=== PATIENT | female | born 1940 | race Caucasian/White ===

== ENCOUNTER 2018-11-18 06:37 | Emergency (ER) | payer OTHER, MEDICARE ==
[~2018-11-18] VITALS: Ht 170.2 cm; Wt 72.6 kg
--- NOTE | 2018-11-18 06:40 | NUR ---
Patient to ER bed 6 to gown for evaluation. Side rails up. Report given to Jimenez BAÑUELOS.
[2018-11-18 06:41] VITALS: BP_SYST 153
--- NOTE | 2018-11-18 06:44 | NUR ---
Pt BIB BLS from [facility] C/O Lt hip pain S/P unwitnessed fall at 0000 this morning. Pt states she was attempting to get back into bed and fell. Pt denies any KO, head, neck or back pain and N/V at this time. Pt has ROM of extremity but unable to straighten leg full. Pt has bruising and swelling to the left leg. Staff gave Tylenol at 0300 with no relief. 12/05 pain, will continue to monitor.
[2018-11-18] MEDS ORDERED: KETOROLAC TROMETHAMINE 60 MG/2 ML VIAL IM ONE (06:45)
--- NOTE | 2018-11-18 06:57 | NUR ---
Report received from SARMAD Gaona for continuation of care.
--- NOTE | 2018-11-18 07:14 | NUR ---
Note kaelone in ED - 11/18/18 at 0818 by HUIEDTAntony Patient presented to [facility] C/O generalized weakness x2. Patient brought in [facility], [place] [id number], ambulatory at home, afebrile, speaking in full sentences, denies pain, denies N/V/D. patient states she had a family event over the weekend and she was admitting to being non complient with diabetic diet.
--- NOTE | 2018-11-18 07:26 | NUR ---
Dietary called for breakfast tray.
--- NOTE | 2018-11-18 07:30 | NUR ---
Homer jara in ED - 11/18/18 at 0820 by SDEDTD JACOBY Batista at bedside examining patient.
--- NOTE | 2018-11-18 08:11 | NUR ---
Patient is complaining of pain in her left hip. States she feels to dizzy to ambulate. Dr. Batista notified.
[2018-11-18] MEDS ORDERED: ACETAMINOPHEN 500 MG TABLET PO ONE (08:15)
--- NOTE | 2018-11-18 08:25 | NUR ---
Breakfast tray provided.
--- NOTE | 2018-11-18 08:30 | NUR ---
Patient's son arrived to pick her up. Patient if finishing her breakfast tray at this time.
[2018-11-18 08:45] VITALS: BP_SYST 128
--- NOTE | 2018-11-18 08:45 | NUR ---
Patient given written and verbal discharge instructions and verbalizes understanding. ER MD discussed with patient the results and treatment provided. Patient in stable condition. ID arm band removed. Rx of naprosyn given. Patient educated on pain management and to follow up with PMD. Pain Scale 8/10, Dr. Batista is aware. Opportunity for questions provided and answered. Medication side effect fact sheet provided.
== END 2018-11-18 08:45 | disposition home or self-care (01) ==
LOC: SED 06:37
DX: S73.102A Unspecified sprain of left hip, initial encounter (principal); Z88.2 Allergy status to sulfonamides; X58.XXXA Exposure to other specified factors, initial encounter; Y93.89 Activity, other specified; Y92.89 Other specified places as the place of occurrence of the external cause; Y99.8 Other external cause status
CPT/HCPCS: 73502; 96372; 99283; J1885

== ENCOUNTER 2018-12-15 06:20 | Emergency (ER) | payer OTHER, MEDICARE ==
[~2018-12-15] VITALS: Ht 167.6 cm; Wt 74.8 kg
--- NOTE | 2018-12-15 06:25 | NUR ---
Patient to ER bed 6 for evaluation. Side rails up.
[2018-12-15 06:26] VITALS: BP_SYST 153
--- NOTE | 2018-12-15 06:30 | NUR ---
Pt 78 YO F from [facility] BIB BLS C/O back pain S/P unwitnessed fall. Pt was walking to the bathroom and tripped. Pt has a small laceration to the back of the head, bleeding is controlled. Pt denies KO, N/V/D or any other symptoms at this time. Will continue to monitor.
--- NOTE | 2018-12-15 06:44 | NUR ---
ER Dr. Beltran at bedside examining patient.
[2018-12-15] MEDS ORDERED: LIDOCAINE 1% 10 MG/ML, 20 ML MDV INJ ONE (07:00)
[2018-12-15] MEDS ORDERED: DIPH-TET-PERTUS Vaccine 0.5 ML VIAL (ADACEL) I.M. ONE (07:00)
--- NOTE | 2018-12-15 07:02 | NUR ---
Patient transported to radiology via gurney, accompanied by rad staff.
--- NOTE | 2018-12-15 07:09 | NUR ---
Report has been given to Mario BAÑUELOS for continuation of care.
[2018-12-15 07:30] LABS: BASOPHILS # (AUTO) 0.1 K/uL (0.0-0.2); BASOPHILS % (AUTO) 0.6 % (0.0-2.0); EOSINOPHILS # (AUTO) 0.5 K/uL (0.0-0.4); EOSINOPHILS % (AUTO) 4.8 % (0.0-4.0); HEMATOCRIT 30.9 % (36-48); HEMOGLOBIN 10.4 g/dL (12.0-16.0); LYMPHOCYTES % (AUTO) 19.9 % (20.5-51.5); MEAN CORPUSCULAR HEMOGLOBIN 33 pg (27-31); MEAN CORPUSCULAR HGB CONC 34 % (32-36); MEAN CORPUSCULAR VOLUME 98 fL (79.0-98.0); MONOCYTES # (AUTO) 0.6 K/uL (0.0-1.0); MONOCYTES % (AUTO) 6.4 % (1.7-9.3); NEUTROPHILS # (AUTO) 6.9 K/uL (1.8-7.7); NEUTROPHILS % (AUTO) 68.3 % (40.0-70.0); PLATELET COUNT (AUTO) 446 K/uL (130-430); RED BLOOD CELL COUNT(AUTO) 3.15 MIL/uL (4.2-6.2); RED CELL DISTRIBUTION WIDTH 17.2 % (9.0-15.0); WHITE BLOOD COUNT (AUTO) 10.1 K/uL (4.8-10.8)
[2018-12-15] MEDS ORDERED: MORPHINE 2 MG/ML INJ. SYRINGE IVP ONE (07:45)
[2018-12-15 07:48] LABS: ANION GAP 7 (5-15); CALCIUM 8.6 mg/dL (8.4-11.0); CHLORIDE 105 mmol/L (98-107); CREATININE 0.71 mg/dL (0.55-1.30); GLUCOSE 113 mg/dL (70-99); POTASSIUM 4.3 mmol/L (3.5-5.1); SODIUM SERUM 138 mmol/L (136-145); UREA NITROGEN, BLOOD 14 mg/dL (8-21)
[2018-12-15 08:01] LABS: ALANINE AMINOTRANSFERASE 23 U/L (12-78); ALBUMIN 3.2 g/dL (3.4-4.8); ASPARTATE AMINOTRANSFERASE 21 U/L (10-37); TOTAL BILIRUBIN 0.6 mg/dL (0.0-1.0)
[2018-12-15] MEDS ORDERED: KETAMINE 30 MG/3 ML SYRINGE IVP ONE (08:15)
[2018-12-15] MEDS ORDERED: IOHEXOL 100 ML IV ONE (08:27)
--- NOTE | 2018-12-15 08:43 | NUR ---
Patient transported to radiology via gurney, accompanied by marine technician.
--- NOTE | 2018-12-15 09:48 | NUR ---
Dr. Kaplan made aware of patient's pain.
[2018-12-15] MEDS ORDERED: MORPHINE 4 MG/ML INJ. SYRINGE IVP ONE (10:00)
[2018-12-15 10:36] LABS: BILIRUBIN,URINE NEGATIVE (NEGATIVE); BLOOD, URINE NEGATIVE (NEGATIVE); CLARITY/URINE CLEAR (CLEAR); COLOR,URINE YELLOW (YELLOW); GLUCOSE,URINE NEGATIVE (NEGATIVE); KETONES,URINE NEGATIVE (NEGATIVE); LEUKOCYTE ESTERASE ,URINE NEGATIVE (NEGATIVE); NITRITE, URINE NEGATIVE (NEGATIVE); PH,URINE 6.5 (5.0-8.0); PROTEIN URINE NEGATIVE (NEGATIVE); UROBILINOGEN,URINE 0.2 (0.2-1.0)
--- NOTE | 2018-12-15 10:57 | NUR ---
Patient given written and verbal discharge instructions and verbalizes understanding. ER MD discussed with patient the results and treatment provided. Patient in stable condition. ID arm band removed. IV catheter removed intact and dressing applied, no active bleeding. Rx of tramadol, ibuprofen given. Patient educated on pain management and to follow up with PMD. Pain Scale 0/10. Opportunity for questions provided and answered. Medication side effect fact sheet provided.
[2018-12-15 10:58] VITALS: BP_SYST 118
== END 2018-12-15 10:58 | disposition home or self-care (01) ==
LOC: SED 06:20
DX: S01.01XA Laceration without foreign body of scalp, initial encounter (principal); S70.02XA Contusion of left hip, initial encounter; S30.0XXA Contusion of lower back and pelvis, initial encounter; S80.12XA Contusion of left lower leg, initial encounter; R94.31 Abnormal electrocardiogram [ECG] [EKG]; Z88.2 Allergy status to sulfonamides; W18.39XA Other fall on same level, initial encounter; Y93.89 Activity, other specified; Y92.89 Other specified places as the place of occurrence of the external cause; Y99.8 Other external cause status
CPT/HCPCS: 12001; 36415; 70450; 72193; 80053; 81003; 85025; 90471; 90715; 93005; 96374; 96375; 96376; 99284; J2001; J2270 ×2; Q9967

== ENCOUNTER 2019-01-28 10:54 | Emergency (ER) | payer OTHER, MEDICARE ==
[~2019-01-28] VITALS: Ht 170.2 cm; Wt 64.9 kg
[2019-01-28 10:55] VITALS: BP_SYST 113
--- NOTE | 2019-01-28 11:00 | NUR ---
Patient brought in by [facility] ambulance w/ c/o of left elbow 5/10 pain which started since last night. Patient stated that elbow pain initially began d/t falling on the floor x 40 days ago. Patient noted to have a left eye abrasion d/t loss of balance and hitting her head on a door a couple of days ago. Patient does not complain of falls or sycope prior to going to ER. Patient complains of dizziness when standing up. Patient remains laying on gurney at this time.
--- NOTE | 2019-01-28 11:01 | NUR ---
Patient to ER bed 03 to gown for evaluation. Side rails up.
--- NOTE | 2019-01-28 11:28 | NUR ---
Dr. Albright @ bedside for examination.
[2019-01-28 12:44] VITALS: BP_SYST 144
--- NOTE | 2019-01-28 12:44 | NUR ---
Patient given written and verbal discharge instructions and verbalizes understanding. ER MD discussed with patient the results and treatment provided. Patient in stable condition. ID arm band removed. Patient educated on pain management and to follow up with PMD. Pain Scale 3/10. Opportunity for questions provided and answered. Medication side effect fact sheet provided.
== END 2019-01-28 12:44 | disposition home or self-care (01) ==
LOC: SED 10:54
DX: S50.02XA Contusion of left elbow, initial encounter (principal); S00.81XA Abrasion of other part of head, initial encounter; Z88.2 Allergy status to sulfonamides; W18.39XA Other fall on same level, initial encounter; Y93.89 Activity, other specified; Y92.89 Other specified places as the place of occurrence of the external cause; Y99.8 Other external cause status
CPT/HCPCS: 99283

== ENCOUNTER 2019-02-07 14:25 | Emergency (ER) | payer OTHER, MEDICARE ==
[~2019-02-07] VITALS: Ht 165.1 cm; Wt 54.4 kg
[2019-02-07] MEDS ORDERED: D5/0.45 NS 1,000 ML IV SCH (14:49)
--- NOTE | 2019-02-07 15:10 | NUR ---
Patient to ER bed 7 to gown for evaluation. Side rails up.
--- NOTE | 2019-02-07 15:10 | NUR ---
Pt arrived to ER after falling out of bed, c/o pain L arm and L leg
--- NOTE | 2019-02-07 15:20 | NUR ---
JACOBY Panchal at bedside examining patient.
--- NOTE | 2019-02-07 15:35 | NUR ---
#20 gauge angiocath placed to R AC. Use of asceptic technique. Opsite placed over site. Blood return noted. Blood for lab drawn from site. Flushed with 10 cc of normal saline. No evidence of infiltration noted. Patient tolerated well.
[2019-02-07 15:42] LABS: BASOPHILS # (AUTO) 0.1 K/uL (0.0-0.2); BASOPHILS % (AUTO) 1.4 % (0.0-2.0); EOSINOPHILS # (AUTO) 0.4 K/uL (0.0-0.4); HEMATOCRIT 40.2 % (36-48); HEMOGLOBIN 13.4 g/dL (12.0-16.0); LYMPHOCYTES # (AUTO) 1.3 K/uL (1.0-5.5); LYMPHOCYTES % (AUTO) 26.6 % (20.5-51.5); MEAN CORPUSCULAR HEMOGLOBIN 32 pg (27-31); MEAN CORPUSCULAR HGB CONC 33 % (32-36); MEAN CORPUSCULAR VOLUME 96 fL (79.0-98.0); MONOCYTES # (AUTO) 0.6 K/uL (0.0-1.0); MONOCYTES % (AUTO) 13.3 % (1.7-9.3); NEUTROPHILS # (AUTO) 2.5 K/uL (1.8-7.7); NEUTROPHILS % (AUTO) 50.7 % (40.0-70.0); PLATELET COUNT (AUTO) 262 K/uL (130-430); RED BLOOD CELL COUNT(AUTO) 4.19 MIL/uL (4.2-6.2); RED CELL DISTRIBUTION WIDTH 15.4 % (9.0-15.0); WHITE BLOOD COUNT (AUTO) 4.8 K/uL (4.8-10.8)
--- NOTE | 2019-02-07 15:50 | NUR ---
Straight cath used for urine sample. Sent to lab
[2019-02-07] MEDS ORDERED: MORPHINE 2 MG/ML INJ. SYRINGE IVP ONE ×2 (16:15→17:15)
--- NOTE | 2019-02-07 16:20 | NUR ---
Morphine 2mg administered for pain
[2019-02-07 16:29] LABS: ANION GAP 9 (5-15); CALCIUM 8.2 mg/dL (8.4-11.0); CHLORIDE 103 mmol/L (98-107); CREATININE 0.69 mg/dL (0.55-1.30); GLUCOSE 167 mg/dL (70-99); POTASSIUM 4.2 mmol/L (3.5-5.1); SODIUM SERUM 135 mmol/L (136-145); UREA NITROGEN, BLOOD 17 mg/dL (8-21)
[2019-02-07 16:32] LABS: BILIRUBIN,URINE NEGATIVE (NEGATIVE); BLOOD, URINE NEGATIVE (NEGATIVE); CLARITY/URINE CLEAR (CLEAR); COLOR,URINE YELLOW (YELLOW); GLUCOSE,URINE NEGATIVE (NEGATIVE); KETONES,URINE NEGATIVE (NEGATIVE); LEUKOCYTE ESTERASE ,URINE NEGATIVE (NEGATIVE); NITRITE, URINE NEGATIVE (NEGATIVE); PH,URINE 6.5 (5.0-8.0); PROTEIN URINE NEGATIVE (NEGATIVE); UROBILINOGEN,URINE 0.2 (0.2-1.0)
[2019-02-07 16:44] LABS: ALANINE AMINOTRANSFERASE 13 U/L (12-78); ALBUMIN 2.9 g/dL (3.4-4.8); ASPARTATE AMINOTRANSFERASE 19 U/L (10-37); THYROID STIMULATING HORMONE 1.48 uIu/mL (0.36-3.74); TOTAL BILIRUBIN 0.3 mg/dL (0.0-1.0)
--- NOTE | 2019-02-07 17:59 | NUR ---
morphine 2mg administered for pain
--- NOTE | 2019-02-07 18:30 | NUR ---
Patient given written and verbal discharge instructions and verbalizes understanding. ER MD discussed with patient the results and treatment provided. Patient in stable condition. ID arm band removed. IV catheter removed intact and dressing applied, no active bleeding. Rx of Tylenol w/Codeine given. Patient educated on pain management and to follow up with PMD. Pain Scale 4 tolerable. Opportunity for questions provided and answered. Medication side effect fact sheet provided.
[2019-02-07 18:35] VITALS: BP_SYST 147
== END 2019-02-07 18:30 | disposition home or self-care (01) ==
LOC: SED 14:25
DX: S22.32XA Fracture of one rib, left side, initial encounter for closed fracture (principal); L76.32 Postprocedural hematoma of skin and subcutaneous tissue following other procedure; Z88.2 Allergy status to sulfonamides; W06.XXXA Fall from bed, initial encounter; Y93.89 Activity, other specified; Y92.89 Other specified places as the place of occurrence of the external cause; Y99.8 Other external cause status
CPT/HCPCS: 36415; 70450; 71045; 71100; 80053; 81003; 83605; 84443; 84484; 85025; 87040; 87086; 93005; 96374; 96376; 99284; J2270; J7030

== ENCOUNTER 2019-03-06 20:15 | Emergency (ER) | payer OTHER, MEDICARE ==
[~2019-03-06] VITALS: Ht 170.2 cm; Wt 64.0 kg
[2019-03-06 20:16] VITALS: BP_SYST 118
--- NOTE | 2019-03-06 21:15 | NUR ---
Patient to ER bed 5 to gown for evaluation. Side rails up.
--- NOTE | 2019-03-06 21:30 | NUR ---
Pt brought in by [facility]. Pt awake, alert, oriented x4. Pt states that she had mechanical slip and fall at [facility]. Pt states that she was a little bit short of breath going to the bathroom and tripped over something trying to get back to her chair. Pt denies KO. Pt states she was able to get up and walk afterwards. Pt states that she has no pain at rest, but 10/10 pain when she rolls to that side. Pt denies chest pain, dizziness, nausea, vomiting, diarrhea, any other medical complaint at this time. Pt resting in ED bed comfortably. No acute distress noted. VSS. Son-in-law bedside.
--- NOTE | 2019-03-06 21:56 | NUR ---
ER at bedside examining patient.
[2019-03-06] MEDS ORDERED: ASPIRIN 81 MG TAB.CHEW PO ONE (23:00)
--- NOTE | 2019-03-06 23:00 | NUR ---
Pt resting in ED bed. Pt shows no acute s/s of distress at this time. Son-in-Law bedside
[2019-03-06 23:50] LABS: ANION GAP 6 (5-15); CHLORIDE 100 mmol/L (98-107); CREATININE 0.83 mg/dL (0.55-1.30); GLUCOSE 120 mg/dL (70-99); POTASSIUM 3.8 mmol/L (3.5-5.1); SODIUM SERUM 132 mmol/L (136-145); UREA NITROGEN, BLOOD 21 mg/dL (8-21)
[2019-03-06 23:54] LABS: ALANINE AMINOTRANSFERASE 28 U/L (12-78); ALBUMIN 3.1 g/dL (3.4-4.8); ASPARTATE AMINOTRANSFERASE 17 U/L (10-37); TOTAL BILIRUBIN 0.3 mg/dL (0.0-1.0)
[2019-03-06 23:55] LABS: BASOPHILS # (AUTO) 0.1 K/uL (0.0-0.2); BASOPHILS % (AUTO) 0.5 % (0.0-2.0); EOSINOPHILS # (AUTO) 0.3 K/uL (0.0-0.4); EOSINOPHILS % (AUTO) 2.1 % (0.0-4.0); HEMATOCRIT 32.5 % (36-48); HEMOGLOBIN 10.7 g/dL (12.0-16.0); LYMPHOCYTES % (AUTO) 22.4 % (20.5-51.5); MEAN CORPUSCULAR HEMOGLOBIN 32 pg (27-31); MEAN CORPUSCULAR HGB CONC 33 % (32-36); MEAN CORPUSCULAR VOLUME 97 fL (79.0-98.0); MONOCYTES # (AUTO) 1.1 K/uL (0.0-1.0); MONOCYTES % (AUTO) 8.2 % (1.7-9.3); NEUTROPHILS # (AUTO) 9.1 K/uL (1.8-7.7); NEUTROPHILS % (AUTO) 66.8 % (40.0-70.0); PLATELET COUNT (AUTO) 298 K/uL (130-430); RED BLOOD CELL COUNT(AUTO) 3.36 MIL/uL (4.2-6.2); RED CELL DISTRIBUTION WIDTH 15.1 % (9.0-15.0); WHITE BLOOD COUNT (AUTO) 13.6 K/uL (4.8-10.8)
--- NOTE | 2019-03-07 | NUR ---
Bedside explaining test results, Xray results.
[2019-03-07] MEDS ORDERED: HYDROcodone/ACETAMIN 5-325 MG TAB (NORCO/ VICODIN) PO ONE (00:30)
[2019-03-07 01:25] VITALS: BP_SYST 127
--- NOTE | 2019-03-07 01:25 | NUR ---
Patient given written and verbal discharge instructions and verbalizes understanding. ER MD discussed with patient the results and treatment provided. Patient in stable condition. ID arm band removed.No IV Catheter Rx of Motrin and [place] 5/325 given. Patient educated on pain management and to follow up with PMD. Pain Scale 0/10. Pt assisted to ambulate to wheelchair and assisted into Vehicle. Opportunity for questions provided and answered. Medication side effect fact sheet provided.
== END 2019-03-07 01:25 | disposition home or self-care (01) ==
LOC: SED 20:15
DX: S70.02XA Contusion of left hip, initial encounter (principal); Z88.2 Allergy status to sulfonamides; W18.39XA Other fall on same level, initial encounter; Y93.89 Activity, other specified; Y92.89 Other specified places as the place of occurrence of the external cause; Y99.8 Other external cause status
CPT/HCPCS: 36415; 71045; 72170-TC; 73502; 80053; 82550-TC; 83880; 84484; 85025; 99284

== ENCOUNTER 2019-04-11 02:40 | Emergency (ER) | payer OTHER, MEDICARE ==
[~2019-04-11] VITALS: Ht 170.2 cm; Wt 63.5 kg
[2019-04-11 02:45] VITALS: BP_SYST 160
[2019-04-11] MEDS ORDERED: KETOROLAC TROMETHAMINE 30 MG VIAL IM ONE (04:00)
[2019-04-11 04:08] LABS: BASOPHILS # (AUTO) 0.1 K/uL (0.0-0.2); EOSINOPHILS # (AUTO) 0.1 K/uL (0.0-0.4); EOSINOPHILS % (AUTO) 1.4 % (0.0-4.0); HEMOGLOBIN 13.7 g/dL (12.0-16.0); LYMPHOCYTES # (AUTO) 1.8 K/uL (1.0-5.5); MEAN CORPUSCULAR HEMOGLOBIN 32 pg (27-31); MEAN CORPUSCULAR HGB CONC 33 % (32-36); MEAN CORPUSCULAR VOLUME 97 fL (79.0-98.0); MONOCYTES # (AUTO) 0.8 K/uL (0.0-1.0); MONOCYTES % (AUTO) 8.1 % (1.7-9.3); NEUTROPHILS # (AUTO) 7.2 K/uL (1.8-7.7); NEUTROPHILS % (AUTO) 71.5 % (40.0-70.0); PLATELET COUNT (AUTO) 286 K/uL (130-430); RED BLOOD CELL COUNT(AUTO) 4.32 MIL/uL (4.2-6.2); RED CELL DISTRIBUTION WIDTH 15.2 % (9.0-15.0); WHITE BLOOD COUNT (AUTO) 10.1 K/uL (4.8-10.8)
[2019-04-11] MEDS ORDERED: DIPH-TET-PERTUS Vaccine 0.5 ML VIAL (ADACEL) I.M. ONE (04:15)
[2019-04-11 04:20] LABS: ANION GAP 9 (5-15); CALCIUM 8.8 mg/dL (8.4-11.0); CHLORIDE 102 mmol/L (98-107); GLUCOSE 152 mg/dL (70-99); POTASSIUM 4.1 mmol/L (3.5-5.1); SODIUM SERUM 137 mmol/L (136-145); UREA NITROGEN, BLOOD 19 mg/dL (8-21)
[2019-04-11 04:26] LABS: ALANINE AMINOTRANSFERASE 24 U/L (12-78); ALBUMIN 3.3 g/dL (3.4-4.8); ASPARTATE AMINOTRANSFERASE 21 U/L (10-37); TOTAL BILIRUBIN 0.3 mg/dL (0.0-1.0)
[2019-04-11] MEDS ORDERED: LIDOCAINE/EPI 1% 1:100000 20 ML VIAL INJ ONE (04:30)
[2019-04-11] MEDS ORDERED: AMOXICILLIN/CLAVULANATE POTASSIUM 875 MG TABLET PO ONE (06:00)
[2019-04-11 06:40] VITALS: BP_SYST 146
== END 2019-04-11 06:40 | disposition home or self-care (01) ==
LOC: SED 02:40
DX: S01.01XA Laceration without foreign body of scalp, initial encounter (principal); E11.9 Type 2 diabetes mellitus without complications; G20 Parkinson's disease; Z87.440 Personal history of urinary (tract) infections; Z86.79 Personal history of other diseases of the circulatory system; Z86.73 Personal history of transient ischemic attack (TIA), and cerebral infarction without residual deficits; Z88.2 Allergy status to sulfonamides; W22.8XXA Striking against or struck by other objects, initial encounter; Y93.89 Activity, other specified; Y92.89 Other specified places as the place of occurrence of the external cause; Y99.8 Other external cause status
CPT/HCPCS: 12013; 36415; 70450; 72125; 80053; 85025; 90471; 90715; 96372; 99285; J1885

== ENCOUNTER 2019-04-29 13:15 | Emergency (ER) | payer OTHER, MEDICARE ==
[~2019-04-29] VITALS: Ht 170.2 cm; Wt 61.2 kg
[2019-04-29 14:00] VITALS: BP_SYST 140
--- NOTE | 2019-04-29 14:00 | NUR ---
Patient to ER bed 07 to gown for evaluation. Side rails up.
--- NOTE | 2019-04-29 14:05 | NUR ---
Patient arrived in the ED c/o Left arm pain post mechanical fall that started today. Patient denied any chest pain or shortness of breath. Denied any fevers, chills, nausea, or vomiting. Patient is alert and oriented x4, respirations even and unlabored, speaking in full sentences, ambulating with assistance. VSS, pain level 8/10. Son at bedside. Informed of approximate wait time. Instructed to notify ED staff for any changes in condition or worsening of symptoms. Patient verbalized understanding.
--- NOTE | 2019-04-29 14:10 | NUR ---
ER Dr. Weller at bedside examining patient.
--- NOTE | 2019-04-29 14:14 | NUR ---
X-ray tech at bedside as ordered by Dr. Weller. Patient tolerated the procedure well.
[2019-04-29] MEDS ORDERED: IBUPROFEN 600 MG TABLET PO ONE (14:15)
[2019-04-29] MEDS ORDERED: NEOMY SULF/BACITRAC ZN/POLY 28 GM OINT..GM. TP ONE (15:45)
[2019-04-29 19:40] VITALS: BP_SYST 116
== END 2019-04-29 19:40 | disposition home or self-care (01) ==
LOC: SED 13:15
DX: S00.03XA Contusion of scalp, initial encounter (principal); E11.9 Type 2 diabetes mellitus without complications; G20 Parkinson's disease; Z86.73 Personal history of transient ischemic attack (TIA), and cerebral infarction without residual deficits; Z86.79 Personal history of other diseases of the circulatory system; Z88.2 Allergy status to sulfonamides; W18.09XA Striking against other object with subsequent fall, initial encounter; Y93.89 Activity, other specified; Y92.89 Other specified places as the place of occurrence of the external cause; Y99.8 Other external cause status
CPT/HCPCS: 70450-TC; 99284

== ENCOUNTER 2019-12-17 01:09 | Emergency (ER) | payer OTHER, MEDICARE ==
[~2019-12-17] VITALS: Ht 170.2 cm; Wt 59.0 kg
[2019-12-17 01:16] VITALS: BP_SYST 160
--- NOTE | 2019-12-17 02:21 | NUR ---
Patient to ER bed 7 to gown for evaluation. Side rails up.
--- NOTE | 2019-12-17 02:28 | NUR ---
Patient BIB by BLS form [facility]. C/O fell x toay. Per BLS/EMT reported, patient fell after tried to turn light on, found right side on the floor, Hx [place], Sx Bypass. A/O,X3, brasion chin, right lower leg, head pain, pain rate 5/10, place patient on lunchroom monitor and pulse ox.
--- NOTE | 2019-12-17 02:35 | NUR ---
ER at bedside examining patient.
[2019-12-17] MEDS ORDERED: DIPH-TET-PERTUS Vaccine 0.5 ML VIAL (ADACEL) I.M. ONE (02:45)
--- NOTE | 2019-12-17 02:55 | NUR ---
Blood for labwork drawn from internal communications manager. Patient tolerated well.
--- NOTE | 2019-12-17 03:15 | NUR ---
Patient transported to radiology via gurney, accompanied by RT and RN.
[2019-12-17 03:18] LABS: BASOPHILS # (AUTO) 0.1 K/uL (0.0-0.2); BASOPHILS % (AUTO) 0.8 % (0.0-2.0); EOSINOPHILS # (AUTO) 0.3 K/uL (0.0-0.4); EOSINOPHILS % (AUTO) 3.1 % (0.0-4.0); HEMATOCRIT 44.6 % (36-48); LYMPHOCYTES # (AUTO) 2.1 K/uL (1.0-5.5); LYMPHOCYTES % (AUTO) 24.2 % (20.5-51.5); MEAN CORPUSCULAR HEMOGLOBIN 32 pg (27-31); MEAN CORPUSCULAR HGB CONC 34 % (32-36); MEAN CORPUSCULAR VOLUME 95 fL (79.0-98.0); MONOCYTES # (AUTO) 0.7 K/uL (0.0-1.0); MONOCYTES % (AUTO) 8.1 % (1.7-9.3); NEUTROPHILS # (AUTO) 5.4 K/uL (1.8-7.7); NEUTROPHILS % (AUTO) 63.8 % (40.0-70.0); PLATELET COUNT (AUTO) 235 K/uL (130-430); RED BLOOD CELL COUNT(AUTO) 4.68 MIL/uL (4.2-6.2); RED CELL DISTRIBUTION WIDTH 14.1 % (9.0-15.0); WHITE BLOOD COUNT (AUTO) 8.5 K/uL (4.8-10.8)
[2019-12-17 03:22] LABS: ANION GAP 7 (5-15); CALCIUM 8.8 mg/dL (8.4-11.0); CHLORIDE 104 mmol/L (98-107); CREATININE 0.92 mg/dL (0.55-1.30); GLUCOSE 147 mg/dL (70-99); POTASSIUM 4.1 mmol/L (3.5-5.1); SODIUM SERUM 137 mmol/L (136-145); UREA NITROGEN, BLOOD 20 mg/dL (8-21)
[2019-12-17 03:27] LABS: ALANINE AMINOTRANSFERASE 19 U/L (12-78); ALBUMIN 3.1 g/dL (3.4-4.8); ASPARTATE AMINOTRANSFERASE 21 U/L (10-37); TOTAL BILIRUBIN 0.4 mg/dL (0.0-1.0)
--- NOTE | 2019-12-17 03:43 | NUR ---
Patient came back from CT scan.
[2019-12-17] MEDS ORDERED: KETOROLAC TROMETHAMINE 30 MG VIAL IM ONE (04:45)
--- NOTE | 2019-12-17 05:36 | NUR ---
Called given report to Michelle, Staff of [facility]
--- NOTE | 2019-12-17 06:15 | NUR ---
Provide bed ban for patient.
--- NOTE | 2019-12-17 06:39 | NUR ---
Patient discharged to [facility] , Patient will transfer to facility by BLS/EMS.
[2019-12-17 06:41] VITALS: BP_SYST 157
== END 2019-12-17 06:39 | disposition home or self-care (01) ==
LOC: SED 01:09
DX: S80.11XA Contusion of right lower leg, initial encounter (principal); S00.512A Abrasion of oral cavity, initial encounter; G20 Parkinson's disease; E11.9 Type 2 diabetes mellitus without complications; Z87.440 Personal history of urinary (tract) infections; Z86.73 Personal history of transient ischemic attack (TIA), and cerebral infarction without residual deficits; Z86.79 Personal history of other diseases of the circulatory system; Z88.2 Allergy status to sulfonamides; W06.XXXA Fall from bed, initial encounter; Y93.89 Activity, other specified; Y92.89 Other specified places as the place of occurrence of the external cause; Y99.8 Other external cause status
CPT/HCPCS: 36415; 70450; 70486; 72125; 73590; 80053; 85025; 90471; 90715; 96372; 99285; J1885

== ENCOUNTER 2020-05-06 09:43 | Emergency (ER) | payer OTHER, MEDICARE ==
[~2020-05-06] VITALS: Ht 170.2 cm; Wt 63.5 kg
[2020-05-06 09:43] VITALS: BP_SYST 146
[2020-05-06 10:38] LABS: BASOPHILS # (AUTO) 0.1 K/uL (0.0-0.2); BASOPHILS % (AUTO) 0.9 % (0.0-2.0); EOSINOPHILS # (AUTO) 0.2 K/uL (0.0-0.4); HEMATOCRIT 46.5 % (36-48); HEMOGLOBIN 15.4 g/dL (12.0-16.0); LYMPHOCYTES # (AUTO) 2.1 K/uL (1.0-5.5); LYMPHOCYTES % (AUTO) 22.3 % (20.5-51.5); MEAN CORPUSCULAR HEMOGLOBIN 32 pg (27-31); MEAN CORPUSCULAR HGB CONC 33 % (32-36); MEAN CORPUSCULAR VOLUME 97 fL (79.0-98.0); MONOCYTES # (AUTO) 0.5 K/uL (0.0-1.0); MONOCYTES % (AUTO) 5.5 % (1.7-9.3); NEUTROPHILS # (AUTO) 6.6 K/uL (1.8-7.7); NEUTROPHILS % (AUTO) 69.3 % (40.0-70.0); PLATELET COUNT (AUTO) 295 K/uL (130-430); WHITE BLOOD COUNT (AUTO) 9.5 K/uL (4.8-10.8)
[2020-05-06 11:20] LABS: PROTHROMBIN TIME 10.4 SECS (9.5-12.5)
[2020-05-06 11:21] LABS: ANION GAP 6 (5-15); CHLORIDE 102 mmol/L (98-107); CREATININE 1.07 mg/dL (0.55-1.30); GLUCOSE 105 mg/dL (70-99); POTASSIUM 4.2 mmol/L (3.5-5.1); SODIUM SERUM 139 mmol/L (136-145); UREA NITROGEN, BLOOD 17 mg/dL (8-21)
[2020-05-06 11:29] LABS: ALANINE AMINOTRANSFERASE 16 U/L (12-78); ALBUMIN 3.3 g/dL (3.4-4.8); ASPARTATE AMINOTRANSFERASE 21 U/L (10-37); TOTAL BILIRUBIN 0.3 mg/dL (0.0-1.0)
[2020-05-06 12:42] VITALS: BP_SYST 146
== END 2020-05-06 12:43 | disposition home or self-care (01) ==
LOC: SED 09:43
DX: S01.112A Laceration without foreign body of left eyelid and periocular area, initial encounter (principal); G20 Parkinson's disease; E11.9 Type 2 diabetes mellitus without complications; Z87.440 Personal history of urinary (tract) infections; Z86.79 Personal history of other diseases of the circulatory system; Z86.73 Personal history of transient ischemic attack (TIA), and cerebral infarction without residual deficits; W01.0XXA Fall on same level from slipping, tripping and stumbling without subsequent striking against object, initial encounter; Y93.89 Activity, other specified; Y92.89 Other specified places as the place of occurrence of the external cause; Y99.8 Other external cause status
CPT/HCPCS: 36415; 80053; 84484; 85025; 85610-TC; 85730-TC; 93005; 99284

== ENCOUNTER 2020-09-23 22:51 | Emergency (ER) | payer OTHER, MEDICARE ==
[~2020-09-23] VITALS: Ht 170.2 cm; Wt 72.6 kg
[2020-09-23 22:59] VITALS: BP_SYST 156
[2020-09-24 11:58] VITALS: BP_SYST 166
== END 2020-09-24 11:57 | disposition home or self-care (01) ==
LOC: SED 22:51
DX: S09.92XA Unspecified injury of nose, initial encounter (principal); W18.39XA Other fall on same level, initial encounter; Y93.89 Activity, other specified; Y92.89 Other specified places as the place of occurrence of the external cause; Y99.8 Other external cause status
CPT/HCPCS: 70150-TC; 70486-TC; 76376; 99284

== ENCOUNTER 2020-10-03 06:31 | Emergency (ER) | payer OTHER, MEDICARE ==
[~2020-10-03] VITALS: Ht 170.2 cm; Wt 63.5 kg
[2020-10-03 06:32] VITALS: BP_SYST 152
--- NOTE | 2020-10-03 06:32 | NUR ---
Patient triaged and placed in bed 4. VSS and patient appears in no acute distress at this time. MD notified of need for MSE.
--- NOTE | 2020-10-03 06:40 | NUR ---
Patient AAOx4 from [facility] BLS d/t s/p mechanical fall. Per patient "i was trying to reach for my water bottle on the top of my counter, forgot to lock my wheelchair and fell forward". Patient has swelling and bruising to nose and left upper lip and cheek. upon arrival dry blood the nares and upper lip. no active bleeding. pt currently taking aspirin. Denies any pain at this time. Denies any KO. VSS.
--- NOTE | 2020-10-03 06:46 | NUR ---
Dr. Javed at bedside for evaluation.
--- NOTE | 2020-10-03 06:52 | NUR ---
PORTABLE XRAY DONE AT BEDSIDE.
--- NOTE | 2020-10-03 06:55 | NUR ---
Blood for labwork drawn. PT TOLERATED WELL.
[2020-10-03] MEDS ORDERED: MOM PO (07:08)
[2020-10-03] MEDS ORDERED: PANT40TA45 PO (07:08)
[2020-10-03] MEDS ORDERED: LACT10SO6 PO (07:08)
[2020-10-03] MEDS ORDERED: LIP40 PO (07:08)
[2020-10-03] MEDS ORDERED: ASPI-1457 PO (07:08)
[2020-10-03] MEDS ORDERED: POLY1GRA PO (07:08)
[2020-10-03] MEDS ORDERED: LORA10TA7 PO (07:08)
[2020-10-03] MEDS ORDERED: FAMO1TAB29 PO (07:08)
[2020-10-03] MEDS ORDERED: METF-834 PO (07:08)
[2020-10-03] MEDS ORDERED: ACET325C5 PO (07:08)
[2020-10-03] MEDS ORDERED: DOCU250C14 PO (07:08)
[2020-10-03] MEDS ORDERED: VITD2000 PO (07:08)
[2020-10-03] MEDS ORDERED: EZET10TA30 PO (07:08)
[2020-10-03] MEDS ORDERED: MELA5TAB12 PO (07:08)
[2020-10-03] MEDS ORDERED: CARB15DR OP (07:08)
[2020-10-03] MEDS ORDERED: OMEG-220 PO (07:08)
[2020-10-03] MEDS ORDERED: IBUP-1968 PO (07:08)
[2020-10-03 07:10] LABS: BASOPHILS % (AUTO) 0.4 % (0.0-2.0); EOSINOPHILS # (AUTO) 0.3 K/uL (0.0-0.4); EOSINOPHILS % (AUTO) 3.9 % (0.0-4.0); HEMATOCRIT 42.7 % (36-48); HEMOGLOBIN 14.7 g/dL (12.0-16.0); LYMPHOCYTES # (AUTO) 1.2 K/uL (1.0-5.5); LYMPHOCYTES % (AUTO) 15.2 % (20.5-51.5); MEAN CORPUSCULAR HEMOGLOBIN 33 pg (27-31); MEAN CORPUSCULAR HGB CONC 34 % (32-36); MEAN CORPUSCULAR VOLUME 95 fL (79.0-98.0); MONOCYTES # (AUTO) 0.4 K/uL (0.0-1.0); MONOCYTES % (AUTO) 5.5 % (1.7-9.3); NEUTROPHILS # (AUTO) 5.9 K/uL (1.8-7.7); PLATELET COUNT (AUTO) 261 K/uL (130-430); RED BLOOD CELL COUNT(AUTO) 4.49 MIL/uL (4.2-6.2); RED CELL DISTRIBUTION WIDTH 13.4 % (9.0-15.0); WHITE BLOOD COUNT (AUTO) 7.8 K/uL (4.8-10.8)
--- NOTE | 2020-10-03 07:10 | NUR ---
Medication reconciliation completed with information provided by the patient medical record from assisted living. Any prior medication reconciliation on file was reviewed and corrected.
--- NOTE | 2020-10-03 07:19 | NUR ---
PATIENT TAKEN TO CT SCAN VIA GURNEY BY RADIOLOGY STAFF AND RN.
--- NOTE | 2020-10-03 07:20 | NUR ---
ENDORSED CARE TO SARMAD VÁSQUEZ.
[2020-10-03 07:31] LABS: ANION GAP 9 (5-15); CHLORIDE 105 mmol/L (98-107); GLUCOSE 128 mg/dL (70-99); POTASSIUM 3.9 mmol/L (3.5-5.1); SODIUM SERUM 139 mmol/L (136-145); UREA NITROGEN, BLOOD 20 mg/dL (8-21)
[2020-10-03 07:32] LABS: ALANINE AMINOTRANSFERASE 39 U/L (12-78); ASPARTATE AMINOTRANSFERASE 20 U/L (10-37); CREATININE 0.97 mg/dL (0.55-1.30); TOTAL BILIRUBIN 0.3 mg/dL (0.0-1.0)
[2020-10-03 07:33] LABS: ALBUMIN 3.2 g/dL (3.4-4.8)
--- NOTE | 2020-10-03 08:16 | NUR ---
Pt resting in [facility] at this time, VSS, alert and oriented, no complaints of pain
[2020-10-03 08:45] LABS: BILIRUBIN,URINE NEGATIVE (NEGATIVE); BLOOD, URINE NEGATIVE (NEGATIVE); COLOR,URINE YELLOW (YELLOW); GLUCOSE,URINE NEGATIVE (NEGATIVE); KETONES,URINE NEGATIVE (NEGATIVE); LEUKOCYTE ESTERASE ,URINE 1+ (NEGATIVE); NITRITE, URINE NEGATIVE (NEGATIVE); PROTEIN URINE NEGATIVE (NEGATIVE); UROBILINOGEN,URINE 0.2 (0.2-1.0)
[2020-10-03 08:50] LABS: CLARITY/URINE SLIGHTLY HAZY (CLEAR)
[2020-10-03 08:59] LABS: BACTERIA,URINE MODERATE /HPF (None Seen); RBC,URINE NONE SEEN /HPF (0-3)
--- NOTE | 2020-10-03 09:00 | NUR ---
Eating breakfast, no complaints
--- NOTE | 2020-10-03 09:17 | NUR ---
Spoke with pt family, they will come pick her up for discharge.
[2020-10-03 10:37] VITALS: BP_SYST 159
--- NOTE | 2020-10-03 10:38 | NUR ---
Patient given written and verbal discharge instructions and verbalizes understanding. ER MD discussed with patient the results and treatment provided. Patient in stable condition. ID arm band removed. No Rx given. Patient educated on pain management and to follow up with PMD. Pain Scale 0/10. Opportunity for questions provided and answered. Medication side effect fact sheet provided.
== END 2020-10-03 10:38 | disposition home or self-care (01) ==
LOC: SED 06:31
DX: S01.511A Laceration without foreign body of lip, initial encounter (principal); E11.9 Type 2 diabetes mellitus without complications; Z88.2 Allergy status to sulfonamides; Z79.899 Other long term (current) drug therapy; W01.198A Fall on same level from slipping, tripping and stumbling with subsequent striking against other object, initial encounter; Y93.89 Activity, other specified; Y92.89 Other specified places as the place of occurrence of the external cause; Y99.8 Other external cause status
CPT/HCPCS: 36415; 70450-TC; 70486-TC; 71045; 72125-TC; 76376; 80053; 81000; 84484; 85025; 87086; 93005; 99285